=== PATIENT | male | born 1975 | race Caucasian/White ===

== ENCOUNTER 2016-08-16 18:52 | Emergency (ER) | payer BC ==
[~2016-08-16] VITALS: Ht 182.9 cm; Wt 59.0 kg
[~2016-08-16 18:52] MED LIST: CHLO10CA70 PO; FURO20TA3 PO; METR500T PO; SPIR50TA23 PO
[2016-08-16 20:22] LABS: Basophils # (auto) 0 uL; Basophils % (auto) 0.2 % (0.0-2.0); DEFINITIVE VIEW TRANSMISSION; Eosinophils # (auto) 0.4 uL; Eosinophils % (auto) 2.9 % (0.0-7.0); Hematocrit 38.9 % (41.0-53.0); Hemoglobin 12.6 g/dL (13.5-17.5); Lymphocytes # (auto) 2.4 uL; Lymphocytes % (auto) 19.6 % (10.0-50.0); Mean Corpuscular Hemoglobin 32.3 pg (28.0-32.0); Mean Corpuscular Hgb Conc. 32.4 g/dL (32.0-36.0); Mean Corpuscular Volume 99.4 fL (80.0-100.0); Monocytes # (auto) 1.9 uL; Monocytes % (auto) 15.3 % (0.0-12.0); Neutrophils # (auto) 7.6 uL; Platelet Count (auto) 194 10^3/uL (140-450); Red Cell Distribution Width 16.3 % (11.6-16.0); White Blood Cell 12.2 10^3/uL (4.4-10.8)
[2016-08-16 20:39] LABS: Albumin 3.8 g/dL (3.4-5.0); BUN/Creatinine Ratio 18.3; Calcium 10.4 mg/dL (8.5-10.1); Potassium 4.1 mmol/L (3.5-5.1)
[2016-08-16 20:43] LABS: Total Protein 9.4 g/dL (6.4-8.2)
[2016-08-16 20:44] LABS: Partial Thromboplastin Time 32.6 sec (22.64-33.71)
[2016-08-16 20:45] LABS: INR 1.3 (0.9-1.15); Prothrombin Time 13.4 sec (9.37-12.3)
[2016-08-16 20:49] LABS: B-Type Natriuretic Peptide 54.46 pg/mL (0-100)
[2016-08-16 20:51] LABS: Temperature: 20.7 C (20.0-25.0)
[2016-08-16] MEDS ORDERED: PIPERACILLIN-TAZOB 3.375GM 100 ML IV ONE (22:00)
[2016-08-16] MEDS ORDERED: ZOLP10TA6 (22:37)
[2016-08-16] MEDS ORDERED: PRO20T (22:37)
[2016-08-17 02:01] LABS: Urine RBC None Seen /hpf (0 - 3)
[2016-08-17 02:18] LABS: Urine Bilirubin Negative (Negative); Urine Blood Negative /uL (Negative); Urine Color Yellow (Yellow); Urine Glucose Normal (Normal); Urine Ketone Negative (Negative); Urine Nitrite Negative (Negative); Urine Urobilinogen Normal (Negative); Urine pH 5.5 (5.0-8.0)
[2016-08-17 02:21] VITALS: BP 104/67
[2016-08-18 11:03] LABS: Hepatitis B Surface Antibody Negative
== END 2016-08-17 02:56 | disposition home or self-care (01) ==
LOC: ER 19:00
DX: R53.1 Weakness (principal); F41.9 Anxiety disorder, unspecified; R45.1 Restlessness and agitation; F19.10 Other psychoactive substance abuse, uncomplicated; F17.210 Nicotine dependence, cigarettes, uncomplicated; F12.10 Cannabis abuse, uncomplicated; K21.9 Gastro-esophageal reflux disease without esophagitis; R42 Dizziness and giddiness; R06.02 Shortness of breath
CPT/HCPCS: 36415; 70450; 71010; 74176; 80053; 81001; 82140; 83605; 83880; 85025; 85049; 85610; 85730; 86703; 86704; 86706; 86708; 86803; 87040; 87340; 93005; 96365; 96366; 99285; G0434; J2543

== ENCOUNTER 2017-07-25 17:26 | Emergency (ER) | payer BC ==
[~2017-07-25] VITALS: Ht 182.9 cm; Wt 54.4 kg
[~2017-07-25 17:26] MED LIST changes: +PRO20T PO; +ZOLP10TA6
[2017-07-25 19:30] LABS: Basophils # (auto) 0 uL; Basophils % (auto) 0.2 % (0.0-2.0); Eosinophils # (auto) 0 uL; Lymphocytes # (auto) 1.9 uL; Mean Corpuscular Hemoglobin 34.2 pg (28.0-32.0); Mean Corpuscular Volume 101.7 fL (80.0-100.0); Nucleated Red Blood Cells % 0.1 %; Platelet Count (auto) 113 10^3/uL (140-450); White Blood Cell 11.5 10^3/uL (4.4-10.8)
[2017-07-25 19:31] LABS: Eosinophils % (auto) 0.3 % (0.0-7.0); Hematocrit 50.4 % (41.0-53.0); Lymphocytes % (auto) 16.6 % (10.0-50.0); Mean Corpuscular Hgb Conc. 33.7 g/dL (32.0-36.0); Monocytes # (auto) 1.6 uL; Monocytes % (auto) 13.6 % (0.0-12.0); Neutrophils % (auto) 69.3 % (37.0-80.0); Red Blood Cells 4.95 10^6/uL (4.5-5.90); Red Cell Distribution Width 14.3 % (11.8-14.3)
[2017-07-25 20:25] LABS: Potassium 3.4 mmol/L (3.5-5.1)
[2017-07-25 20:26] LABS: Albumin 4.7 g/dL (3.4-5.0); BUN/Creatinine Ratio 21.1; Bilirubin, Total 2.5 mg/dL (0.2-1.0); Magnesium 3.3 mg/dL (1.6-2.6); Total Protein 9.3 g/dL (6.4-8.2)
[2017-07-26] MEDS ORDERED: SODIUM CHLORIDE 0.9% 1,000 ML IV ONE ×2 (05:15→08:00)
[2017-07-26] MEDS ORDERED: HYDROmorphone HCL 2 MG/ML VL IV ONE (05:15)
[2017-07-26] MEDS ORDERED: ONDANSETRON HCL 4 MG/2 ML VIAL IV ONE (05:15)
[2017-07-26] MEDS ORDERED: GABA-497 PO (05:22)
[2017-07-26] MEDS ORDERED: RIFA550T PO (05:24)
[2017-07-26] MEDS ORDERED: PANTOPRAZOLE 40 MG/10 ML VIAL IV ONE (08:00)
[2017-07-26 09:30] VITALS: BP 156/94
[2017-07-26] MEDS ORDERED: PROMETHAZINE HCL 25 MG/ML 1ML IV ONE (09:45)
== END 2017-07-26 09:16 | disposition home or self-care (01) ==
LOC: ER 17:43
DX: K29.70 Gastritis, unspecified, without bleeding (principal); F17.210 Nicotine dependence, cigarettes, uncomplicated; F12.10 Cannabis abuse, uncomplicated; Z90.89 Acquired absence of other organs; Z88.6 Allergy status to analgesic agent
CPT/HCPCS: 36415; 74176; 80053; 82150; 83690; 83735; 85025; 96361; 96374; 96375; 99285; C9113; J1170; J2405; J2550; J7030